=== PATIENT | female | born 1975 | race Caucasian/White ===

== ENCOUNTER → 2023-12-25 13:39 | Outpatient (REF) | payer BC, SELFPAY | LOC: RCS 13:39 | PROVIDERS: ATTENDING PHYSICIAN Internal Medicine Cardiovascular Disease; FAMILY PHYSICIAN Family Medicine | DX: R00.2 Palpitations (principal) | CPT/HCPCS: 93017; 93350 ==

== ENCOUNTER 2024-02-10 06:31 | Day surgery (SDC) | payer BC, SELFPAY ==
[2024-02-05 07:17] VITALS: BMI 28.3
[2024-02-05 08:52] LABS: Urine Albumin Negative (Neg - Trace); Urine Bilirubin Negative (Negative); Urine Character Clear (Clear); Urine Color Straw; Urine Glucose Negative (Negative); Urine Ketone Negative (Negative); Urine Leukocyte Negative (Negative); Urine Nitrite Negative (Negative); Urine Occult Blood Negative (Negative); Urine Specific Gravity 1.005 (<1.030); Urine Urobilinogen Negative (Neg - 1+); Urine pH 6.5 (5.0-9.0)
[2024-02-05 09:00] LABS: % Basophils 1.5 % (0-2); % Eosinophils 3.5 % (0-6); % Immature Granulocytes 0.1 % (0-0.5); % Lymphocytes 33.3 % (20.5-51.1); % Neutrophils 55.6 % (42.2-75.2); Absolute Basophils 0.1 10^3/uL (0-0.2); Absolute Eosinophils 0.3 10^3/uL (0-0.7); Absolute Lymphocytes 2.4 10^3/uL (1.2-3.4); Absolute Monocytes 0.4 10^3/uL (0.1-0.6); Hematocrit 42.5 % (37.0-47.0); Hemoglobin 14.5 g/dL (12.0-16.0); Mean Corp Hgb Conc. 34.1 g/dL (33.0-37.0); Mean Corpuscular Hgb 30.9 pg (27.0-31.0); Mean Corpuscular Volume 90.4 fL (81.0-99.0); Mean Platelet Volume 10.8 fL (7.4-10.4); Nucleated Red Blood Cells % 0 %; Platelet Count 333 10^3/uL (130-400); Red Cell Dist. Width 11.9 % (11.5-14.5); White Blood Cell Count 7.2 10^3/uL (4.8-10.8)
[2024-02-05 09:01] LABS: INR 0.97; PT 12.9 Sec (11.4-14.6)
[2024-02-05 09:02] LABS: APTT 33.3 Sec (23.4-35.0)
[2024-02-05 09:04] LABS: Blood Urea Nitrogen 10 mg/dl (7-17); Calcium 10.1 mg/dl (8.4-10.2); Carbon Dioxide 23 mmol/L (22-30); Chloride 103 mmol/L (98-107); Estimated Creatinine Clearance 100 ml/min; Glucose 80 mg/dl (70-99); Potassium 4.1 mmol/L (3.5-5.1); Sodium 140 mmol/L (135-145); eGFR > 60.00
[2024-02-10] VITALS (9 sets, daily range): BP systolic 91–125; BP diastolic 53–80; BMI 28.3
[2024-02-10] MEDS: NORMOSOL-R 1000 IV (09:30)
[2024-02-10 10:06] LABS: HCG, Urine Qualitative Screen Negative
[2024-02-10] MEDS: Pyridium 200 MG PO (12:01)
== END 2024-02-10 13:10 | disposition home or self-care (01) ==
LOC: SDS 06:31
PROVIDERS: ATTENDING PHYSICIAN Urology; FAMILY PHYSICIAN Family Medicine
DX: N30.10 Interstitial cystitis (chronic) without hematuria (principal); G89.29 Other chronic pain
CPT/HCPCS: 52260; 88305; 36415; 80048; 81003; 81025; 85025; 85610; 85730